=== PATIENT | male | born 1950 | race Caucasian/White ===

== ENCOUNTER 2017-11-14 22:53 | Emergency (ER) | payer MEDICARE, MEDICAID ==
[~2017-11-14] VITALS: Ht 175.3 cm; Wt 58.1 kg
[~2017-11-14 22:53] MED LIST: AZITHROMYCIN 2250 MG PO; ERYTHROMYCIN E3.5 G3 OPHTHALMIC; FLEXERIL PO; HYDROCODON-ACE1 EAC7 PO; HYDROCODONE-AP1 EAC6 PO; HYDROCODONE-IB1 EACH PO; IBUPROFEN 600600 M1 PO; MEDROL DOSPAK21 TAB PO; NITROGLYCERIN0.4 MG SUBLING; NOHOMEMEDICATIONS; OXYCONTIN20 M1 PO; ULTRAM 50MG TAB50 MG PO; ZOFRAN ODT4 MG PO
[2017-11-14] MEDS ORDERED: MEDROLDOSEPACK PO (23:44)
[2017-11-14] MEDS ORDERED: FLOVENT HFA 4444 MCG INH (23:44)
[2017-11-14] MEDS ORDERED: PROAIR HFA8.5 GM INH (23:44)
[2017-11-14] MEDS ORDERED: DOXYCYCLINE 10100 MG PO (23:47)
[2017-11-15 00:48] VITALS: BP 160/65
== END 2017-11-15 00:49 | disposition home or self-care (01) ==
LOC: M.ERS 22:53
DX: S40.861A Insect bite (nonvenomous) of right upper arm, initial encounter (principal); J44.9 Chronic obstructive pulmonary disease, unspecified; G89.29 Other chronic pain; M54.2 Cervicalgia; M54.9 Dorsalgia, unspecified; F17.210 Nicotine dependence, cigarettes, uncomplicated; Z88.1 Allergy status to other antibiotic agents; Z88.6 Allergy status to analgesic agent; Z88.8 Allergy status to other drugs, medicaments and biological substances; W57.XXXA Bitten or stung by nonvenomous insect and other nonvenomous arthropods, initial encounter; Y93.89 Activity, other specified; Y92.89 Other specified places as the place of occurrence of the external cause; Y99.8 Other external cause status

== ENCOUNTER 2018-06-12 12:39 | Emergency (ER) | payer MEDICARE, MEDICAID ==
[~2018-06-12] VITALS: Ht 172.7 cm; Wt 59.0 kg
[~2018-06-12 12:39] MED LIST changes: +DOXYCYCLINE 10100 MG PO; +FLOVENT HFA 4444 MCG INH; +MEDROLDOSEPACK PO; +PROAIR HFA8.5 GM INH
[2018-06-12] MEDS ORDERED: ULTRAM50 MG PO (12:55)
[2018-06-12] MEDS ORDERED: TRAMADOL 50 MG50 MG PO (13:10)
[2018-06-12 14:29] LABS: ABSOLUTE EOSINOPHILS 0.4 thou/uL (0.0-0.7); ABSOLUTE LYMPHOCYTES 2.1 thou/uL (0.8-5.3); ABSOLUTE MONOCYTES 0.6 thou/uL (0.0-1.2); ABSOLUTE NEUTROPHILS 3.5 thou/uL (1.6-8.1); BASOPHILS 0.7 %; EOSINOPHILS 6.4 %; HEMATOCRIT 43.2 % (42.0-52.0); HEMOGLOBIN 14.6 gm/dL (14.0-18.0); LYMPHOCYTES 30.9 %; MCH 30.7 pg (26.0-34.0); MCHC 33.9 g/dL (28.0-37.0); MCV 90.6 fL (80.0-100.0); MONOCYTES 9.4 %; MPV 7.3 fl. (7.2-11.1); NUCLEATED RBCS 0 /100WBC; PLATELET COUNT* 169 thou/uL (150-400); POLYS 52.6 %; RBC 4.77 mil/uL (4.50-6.00); RDW-CV 13.7 % (10.5-14.5); WBC 6.7 thou/uL (4.0-11.0)
[2018-06-12 14:38] LABS: ANION GAP 4 mmol/L (7-16); BUN 13 mg/dL (7-18); CALCIUM 8.5 mg/dL (8.5-10.1); CHLORIDE 104 mmol/L (98-107); CO2 33 mmol/L (21-32); GLUCOSE 95 mg/dL (70-99); POTASSIUM 4.8 mmol/L (3.5-5.1); SODIUM 141 mmol/L (136-145)
[2018-06-12 14:49] LABS: ALBUMIN 3.3 g/dL (3.4-5.0); ALKALINE PHOSPHATASE 114 U/L (46-116); NT-PRO BRAIN NAT PEPTIDE 132 pg/mL (<300); SGOT 13 U/L (15-37); SGPT 12 U/L (30-65); TOTAL BILIRUBIN 0.3 mg/dL (<0.1-1.0); TOTAL PROTEIN 7.2 g/dL (6.4-8.2); TROPONIN-I LEVEL <0.06 ng/mL (<0.06)
[2018-06-12] MEDS ORDERED: NORCO 5-325 TA1 EACH PO (15:08)
[2018-06-12 15:19] VITALS: BP 140/80
--- NOTE | 2018-06-13 18:04 | EKG ---
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 : 1950 Requested By: Katie Veras Order Number: [id number] MD: Ronald Pham Measurements Intervals [place] Rate: 54 P: 75 [place]: 161 QRS: 67 QRSD: 149 T: 58 QT: 465 QTc: 441 Interpretive Statements Sinus rhythm Possible left atrial enlargement Right bundle branch block Baseline wander in lead(s) V6 Compared to ECG 06/06/2011 14:23:31 No significant changes Electronically Signed On 06-13-2018 18:04:17 CUT IN WORKER by Ronald Pham [email or web address] <ELECTRONICALLY SIGNED> By: Ronald Pham MD, LOCATED WITHIN [facility] 06/13/18 1804 143 143 Ronald Pham MD, FAC /EPI
== END 2018-06-12 15:21 | disposition home or self-care (01) ==
LOC: M.ERS 12:39
PROVIDERS: Nurse Practitioner Family
DX: J44.9 Chronic obstructive pulmonary disease, unspecified (principal); R07.81 Pleurodynia; G89.29 Other chronic pain; M54.2 Cervicalgia; M54.9 Dorsalgia, unspecified; F17.210 Nicotine dependence, cigarettes, uncomplicated; Z88.6 Allergy status to analgesic agent; Z88.2 Allergy status to sulfonamides; Z88.8 Allergy status to other drugs, medicaments and biological substances

== ENCOUNTER → 2018-10-02 | Outpatient (CLI) | payer OTHER, MEDICAID ==
[~2018-10-02] MED LIST changes: +IPRAT-ALBUT 0.5-3 ML INH; +NEBULIZER MISCELL; +NORCO 5-325 TA1 EACH PO; +PREDNISONE50 MG PO; +TRAMADOL 50 MG50 MG PO; +ULTRAM50 MG PO
== END ==
LOC: M.RAD 10:24
DX: J43.9 Emphysema, unspecified (principal); J98.4 Other disorders of lung; J84.10 Pulmonary fibrosis, unspecified; J98.11 Atelectasis

== ENCOUNTER 2018-10-06 12:11 | Emergency (ER) | payer OTHER, MEDICAID ==
[~2018-10-06] VITALS: Ht 172.7 cm; Wt 58.5 kg
[~2018-10-06 12:11] MED LIST changes: -IPRAT-ALBUT 0.5-3 ML INH; -NEBULIZER MISCELL; -PREDNISONE50 MG PO
[2018-10-06 12:40] LABS: ABSOLUTE EOSINOPHILS 0.2 thou/uL (0.0-0.7); ABSOLUTE LYMPHOCYTES 1.8 thou/uL (0.8-5.3); ABSOLUTE MONOCYTES 0.9 thou/uL (0.0-1.2); ABSOLUTE NEUTROPHILS 5.6 thou/uL (1.6-8.1); BASOPHILS 0.2 %; EOSINOPHILS 2.7 %; HEMATOCRIT 40.8 % (42.0-52.0); HEMOGLOBIN 14.1 gm/dL (14.0-18.0); LYMPHOCYTES 21.5 %; MCH 30.6 pg (26.0-34.0); MCHC 34.6 g/dL (28.0-37.0); MCV 88.6 fL (80.0-100.0); MONOCYTES 10.1 %; MPV 7.3 fl. (7.2-11.1); NUCLEATED RBCS 0 /100WBC; PLATELET COUNT* 171 thou/uL (150-400); POLYS 65.5 %; RBC 4.61 mil/uL (4.50-6.00); RDW-CV 13.5 % (10.5-14.5); WBC 8.5 thou/uL (4.0-11.0)
[2018-10-06 12:44] LABS: ANION GAP 8 mmol/L (7-16); BUN 12 mg/dL (7-18); CALCIUM 8.3 mg/dL (8.5-10.1); CHLORIDE 103 mmol/L (98-107); CO2 31 mmol/L (21-32); GLUCOSE 110 mg/dL (70-99); POTASSIUM 3.9 mmol/L (3.5-5.1); SODIUM 142 mmol/L (136-145)
[2018-10-06 13:00] LABS: ALKALINE PHOSPHATASE 110 U/L (46-116); LIPASE 85 U/L (73-393); NT-PRO BRAIN NAT PEPTIDE 157 pg/mL (<300); SGOT 12 U/L (15-37); SGPT 12 U/L (30-65); TOTAL BILIRUBIN 0.4 mg/dL (<0.1-1.0); TOTAL PROTEIN 7.5 g/dL (6.4-8.2); TROPONIN-I LEVEL <0.06 ng/mL (<0.06)
[2018-10-06] MEDS ORDERED: NEBULIZER MISCELL (16:05)
[2018-10-06] MEDS ORDERED: IPRAT-ALBUT 0.5-3 ML INH (16:05)
[2018-10-06] MEDS ORDERED: AZITHROMYCIN 2250 MG PO (16:05)
[2018-10-06] MEDS ORDERED: PREDNISONE50 MG PO (16:05)
[2018-10-06 16:25] VITALS: BP 134/71
--- NOTE | 2018-10-07 11:38 | EKG ---
[place] [address] ELECTROCARDIOGRAM REPORT Name: KHOI FIERRO 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: SANDY : 1950 Requested By: Larisa Maxwell Order Number: [id number] MD: Jamir Verduzco Measurements Intervals [place] Rate: 88 P: 77 NV: 143 QRS: 68 QRSD: 140 T: 54 QT: 405 QTc: 490 Interpretive Statements Sinus rhythm Biatrial enlargement Right bundle branch block Compared to ECG 06/12/2018 14:30:21 No significant changes Electronically Signed On 10-07-2018 11:38:36 CDT by Jamir Verduzco [email or web address] <ELECTRONICALLY SIGNED> By: Jamir Verduzco MD, [facility] 10/07/18 1138 15 Jamir Verduzco MD, FAC /EPI
== END 2018-10-06 16:25 | disposition home or self-care (01) ==
LOC: M.ERS 12:11
PROVIDERS: Personal Emergency Response Attendant
DX: J44.9 Chronic obstructive pulmonary disease, unspecified (principal); J18.9 Pneumonia, unspecified organism; G89.29 Other chronic pain; M54.2 Cervicalgia; M54.9 Dorsalgia, unspecified; F17.210 Nicotine dependence, cigarettes, uncomplicated; Z88.6 Allergy status to analgesic agent; Z88.2 Allergy status to sulfonamides; Z88.8 Allergy status to other drugs, medicaments and biological substances

== ENCOUNTER 2019-05-02 05:40 | Inpatient (IN) | payer OTHER, MEDICAID ==
[2019-04-18 08:40] LABS: HEMOGLOBIN 15.1 gm/dL (14.0-18.0); MCH 31.7 pg (26.0-34.0); MCHC 35.2 g/dL (28.0-37.0); MCV 90.3 fL (80.0-100.0); MPV 7.3 fl. (7.2-11.1); RBC 4.76 mil/uL (4.50-6.00); RDW-CV 13.4 % (10.5-14.5); WBC 9.4 thou/uL (4.0-11.0)
[2019-04-18 08:51] LABS: ALBUMIN 3.3 g/dL (3.4-5.0); POTASSIUM 4.3 mmol/L (3.5-5.1); TOTAL BILIRUBIN 0.4 mg/dL (<0.1-1.0); TOTAL PROTEIN 7.2 g/dL (6.4-8.2)
--- NOTE | 2019-04-18 10:33 | EKG ---
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: : 1950 Requested By: Heide Aldana Order Number: [id number] Reading MD: Shaq Hernandez Measurements Intervals [place] Rate: 76 P: 82 DE: 143 QRS: 79 QRSD: 143 T: 63 QT: 411 QTc: 463 Interpretive Statements Sinus rhythm Biatrial enlargement Right bundle branch block Compared to ECG 10/06/2018 12:16:18 No significant changes Electronically Signed On 04-18-2019 10:33:11 FIRE SAFETY MANAGER by Shaq Hernandez [email or web address] <ELECTRONICALLY SIGNED> By: Shaq Hernandez MD, [facility] 04/18/19 [phone] [id number] Shaq Hernandez MD, FACC /EPI
--- NOTE | ~2019-05-02 | OP ---
[address] [address] OPERATIVE REPORT Name: KHOI FIERRO Room: [facility] Michelle#: [id number] Admission: 05/02/19 Attend Phys: Heide Aldana DO Discharge: Date of : 54 Report #: [id number] THIS REPORT FOR: //name// CC: Heide Annerobin DATE OF SERVICE: 05/02/2019 PREOPERATIVE DIAGNOSIS: Bilateral inguinal hernias. POSTOPERATIVE DIAGNOSES: 1. Bilateral incarcerated indirect inguinal hernias. 2. Bilateral incarcerated direct inguinal hernias. 3. Bilateral incarcerated obturator hernia. PROCEDURES: 1. Laparoscopic bilateral inguinal herniorrhaphy. 2. Laparoscopic bilateral obturator hernia repair. 3. Bilateral inguinal nerve block. SURGEON: Dr. Heide Aldana. ANESTHESIA: General endotracheal. INTRAOPERATIVE FINDINGS: Bard 3DMax mesh size large used bilaterally. ESTIMATED BLOOD LOSS: 25 mL. COMPLICATIONS: None. INDICATIONS FOR THE PROCEDURE: The patient is a 68-year-old gentleman who presented to my office for evaluation of left groin pain and discomfort as well as increasing bulge in the groin region. The patient was found to have bilateral inguinal hernias on examination. The patient was explained the procedure including risks, benefits and alternatives. All questions were answered to patient's satisfaction. Informed consent was obtained. DESCRIPTION OF PROCEDURE: After the patient was brought back to the operating room and placed in supine position, general anesthesia was induced. SCDs were placed on bilateral extremities and prophylactic antibiotics were administered. Next, after a timeout was performed, the abdomen was accessed via an infraumbilical incision. The anterior rectus sheath was incised to the right of midline. Dissection was carried down to the retrorectus space and a laparoscopic SpaceMaker was then placed. The SpaceMaker was then insufflated and then a Flora trocar was then placed. The preperitoneal space was then insufflated to (1:46) 15 mm of CO2. [place] [address] OPERATIVE REPORT Name: KHOI FIERRO Room: [facility] M.R.#: [id number] Admission: 05/02/19 Attend Phys: Heide Aldana DO Discharge: Date of : 54 Report #: [id number] Trendelenburg and two 5 mm trocars were placed under direct visualization into the preperitoneal space. Attention was first turned towards the right groin. Dissection was carried down at the level of the pubic symphysis. Dissection was carried laterally and the loose areolar tissue was then swept free. The patient was noted to have a moderate sized direct incarcerated hernia, which was reduced from preperitoneal fat. The patient was also noted to have a densely adherent and incarcerated smaller right indirect inguinal hernia. The cord structures were dissected free from the hernia sac, which was then reduced down in a high ligation fashion. Upon further inspection of the right groin, the patient was noted to have an incarcerated obturator hernia, which did contain preperitoneal fat. This was reduced. The dissection was carried laterally towards the ASIS and the semilunaris line was taken down. Next, attention was then turned towards the left groin. Dissection was performed in a similar fashion. The patient was noted to have a large incarcerated direct inguinal hernia on the left, which was reduced. A smaller left indirect inguinal hernia with the sac that was circumferentially dissected free from the cord structures and was reduced in a high ligation fashion. The patient was also again noted to have an obturator hernia on the left side. The dissection again was carried towards the left ASIS. Next, a Bard 3DMax mesh size large was selected for the left and right. This was placed in the preperitoneal space, was laid to overlie both the direct and indirect spaces with the tongue medial to cover the obturator space. The mesh was then secured in position with the sSecure Sstrap tacker, 1 at Mansoor's ligament, and 1 in the medial rectus and 1 lateral rectus. The right mesh was fixated in the same manner. Next, approximately 30 mL of local anesthetic was infiltrated into the preperitoneal space. The preperitoneal space was then desufflated. The trocars were removed. The mesh lied in excellent position. Next, the umbilical stalk was then grasped and retracted anteriorly. The posterior sheath was incised with removal of pneumoperitoneum, which had gone into the abdomen. Next, the umbilical fascia was then closed with a [id number] 0 Vicryl stitch. Local anesthetic was infiltrated into all surgical sites. Bilateral inguinal blocks were then performed using 5 mL of 1% lidocaine with 0.5% Marcaine mixed 50:50, 1 cm medially and inferior to the ASIS bilaterally. The skin was then closed with 4-0 Monocryl in a subcuticular manner and Dermabond was applied for sterile dressing. The patient tolerated the procedure well without complications. All sponge and instrument count was reported as correct at the end of the case. The Levy catheter was placed at the beginning of the procedure, was removed prior to extubation and both testicles laid within the scrotum at the remainder of the procedure. The patient was awakened from anesthesia and taken to PACU in stable condition for further recovery. By: Jhon: 05/02/19 0913 [id number] Aldana DO /nt
[~2019-05-02 05:40] MED LIST changes: +IPRAT-ALBUT 0.5-3 ML INH; +NEBULIZER MISCELL; +NITROSTAT0.4 M1 SUBLING; +NORCO 5-325 TA1 EAC1 PO; +PREDNISONE 20 M20 MG PO; +PREDNISONE50 MG PO; +TUDORZA PRESS400 MCG INH
[2019-05-02] MEDS ORDERED: NORCO 5-325 TA1 EAC1 PO (09:15)
--- NOTE | 2019-05-02 13:53 | NUR ---
POST OP OUTPATIENT IN PACU, ON RA PTS OXYGEN LEVEL WAS 80% 1L SATURATION 83% 2L SATURATION 84% 3L SATURATION 88% 4L SATURATION 90% PT DOES REQUIRE SUPPLIMENTAL OXYGEN AT ALL TIMES
--- NOTE | 2019-05-02 14:56 | NUR ---
WAS ASKED BY RENAE/MICHAEL TO SET UP HOME O2 FOR PT HE WAS LEAVING FROM THE PACU AND NEEDED 4L O2 AT ALL TIMES. ORDERS AND SATS RECEIVED, ARRANGED THRU [facility] TO BE DELIVERED TO ED WAITING ROOM WHERE PT IS WAITING ON RIDE. RENAE GIVEN UPDATE AND INFO FOR [facility]. SHE COMMUNICATED TO PT.
--- NOTE | 2019-05-02 16:14 | NUR ---
I was contacted by JOSSIE Sawant from the PACU at 1238 this afternoon concerned about a patient. Patient had surgery this morning and was slow to recover needing Oxygen Support. Physician ordered for admission but patient was refusing and demanding to go home. Both Isis SETHI and Savana SETHI tried to speak with patient about staying for admission but patient continued to refused and demanded to go home. Dr. Beard, anesthesiologist spoke with patient about the importance of staying and being admitted and the risk for heart attack, stroke and if he goes home against medical advice. Again, patinet continued to insist he wasn't going to stay and wanted to go home. "If I'm going to , I want to be at home." Patient was asked if he would be at least willing to stay long enough to set up home oxygen and he agreed. Order was written and case management contacted for set up. Cathleen case management was working on oxygen set up, patient got aggitated with the waited and started pulling out his IV, monitors and started dressing himself. He was encouraged to wait and reassured that we were working as fast as we could. Patient did calm down and agree to wait. Home oxygen was set up and a tank was delivered to patient at facility but patient refused to wear it at this time. At 1527 patient left against medical. advice with home O2 but refused to wear it. continued to refuse admission and left against medical advice
== END 2019-05-02 14:20 | disposition left against medical advice (07) | DRG 337 ==
LOC: M.SUR 05:40 → M.TBA 11:46 → M.SUR 12:01 → M.TBA 14:20 → M.SUR 15:50
PROVIDERS: Surgery; ADMIT Family Medicine
PROC: 0DNU4ZZ Release Omentum, Percutaneous Endoscopic Approach (ICD-10-PCS; principal; 2019-05-02)
PROC: 0WUF4JZ Supplement Abdominal Wall with Synthetic Substitute, Percutaneous Endoscopic Approach (ICD-10-PCS; principal; 2019-05-02)
DX: K45.0 Other specified abdominal hernia with obstruction, without gangrene (principal); K40.00 Bilateral inguinal hernia, with obstruction, without gangrene, not specified as recurrent; Z53.29 Procedure and treatment not carried out because of patient's decision for other reasons; J44.9 Chronic obstructive pulmonary disease, unspecified; G89.29 Other chronic pain; M54.9 Dorsalgia, unspecified; M54.2 Cervicalgia; F17.210 Nicotine dependence, cigarettes, uncomplicated; Z88.6 Allergy status to analgesic agent; Z88.2 Allergy status to sulfonamides; Z88.8 Allergy status to other drugs, medicaments and biological substances

== ENCOUNTER → 2020-04-02 | Outpatient (CLI) | payer OTHER, MEDICAID | LOC: M.RAD 09:16 | PROVIDERS: ATTEND Internal Medicine | DX: J44.9 Chronic obstructive pulmonary disease, unspecified (principal); F17.200 Nicotine dependence, unspecified, uncomplicated ==

== ENCOUNTER → 2020-06-16 | Outpatient (CLI) | payer OTHER, MEDICAID | LOC: M.RAD 08:16 | PROVIDERS: ATTEND Internal Medicine | DX: J98.4 Other disorders of lung (principal); R07.89 Other chest pain; R06.00 Dyspnea, unspecified; J44.9 Chronic obstructive pulmonary disease, unspecified ==

== ENCOUNTER → 2020-09-14 | Outpatient (CLI) | payer OTHER, MEDICAID | LOC: M.RAD 09:50 | PROVIDERS: ATTEND Internal Medicine | DX: M48.061 Spinal stenosis, lumbar region without neurogenic claudication (principal); M25.78 Osteophyte, vertebrae; I70.0 Atherosclerosis of aorta; M47.812 Spondylosis without myelopathy or radiculopathy, cervical region; M47.816 Spondylosis without myelopathy or radiculopathy, lumbar region ==

== ENCOUNTER → 2021-06-24 | Outpatient (CLI) | payer OTHER, MEDICAID | LOC: M.RAD 08:07 | PROVIDERS: ATTEND Internal Medicine | DX: Z01.818 Encounter for other preprocedural examination (principal); J44.9 Chronic obstructive pulmonary disease, unspecified ==